=== PATIENT | female | born 1995 | race Asian ===

== ENCOUNTER → 2022-08-31 09:15 | Outpatient (CLI) | payer OTHER, SELFPAY ==
[2022-08-31 12:13] LABS: Hematocrit 35.6 % (36-46); Hemoglobin 12.3 g/dL (12.0-16.0)
[2022-08-31 12:27] LABS: GTT (PREG) 1 Hour PP 50gm Dose 142 mg/dL (76-139)
== END ==
PROVIDERS: PCP Physician Assistant; Referring Provider Obstetrics & Gynecology; Visit Provider Obstetrics & Gynecology
DX: Z34.00 Encounter for supervision of normal first pregnancy, unspecified trimester (principal); Z3A.26 26 weeks gestation of pregnancy
CPT/HCPCS: 36415; 82950; 85014; 85018; 86850

== ENCOUNTER → 2022-09-05 07:50 | Outpatient (CLI) | payer OTHER, SELFPAY ==
[2022-09-05 10:21] LABS: Glucose 1 Hour Gest 174 mg/dL (76-180)
[2022-09-05 10:22] LABS: Glucose Fasting Gestational 70 mg/dL (76-95)
[2022-09-05 10:58] LABS: Glucose 2 Hour Gest 154 mg/dL (76-155)
[2022-09-05 11:05] LABS: Glucose Tol Interp,Gestational INTERPRETATION
[2022-09-05 12:37] LABS: Glucose 3 Hour Gest 135 mg/dL (76-140)
== END ==
PROVIDERS: PCP Physician Assistant; Referring Provider Obstetrics & Gynecology; Visit Provider Obstetrics & Gynecology
DX: R73.09 Other abnormal glucose (principal)
CPT/HCPCS: 36415; 82951; 82952

== ENCOUNTER → 2022-11-14 09:04 | Outpatient (CLI) | payer OTHER, SELFPAY ==
[2022-11-15 07:56] LABS: Strep Grp B PCR NEG for Grp B Strep
== END ==
PROVIDERS: Visit Provider Obstetrics & Gynecology
DX: Z34.03 Encounter for supervision of normal first pregnancy, third trimester (principal); Z3A.37 37 weeks gestation of pregnancy
CPT/HCPCS: 87653

== ENCOUNTER 2022-12-05 16:06 | Observation (INO) | payer OTHER, SELFPAY ==
--- NOTE | 2022-12-05 16:16 | P.TNLD_ITS ---
Visit Information Visit Information Date of evaluation: 12/05/22 Primary OB Provider: Rosa Mcleod On-call OB Provider: Janel Nicole Comments/Additional reasons for admission: Pt is a 27yo at 40w1d here for contractions. Pt reports contractions started earlier today. They have been getting more painful. No LOF or vaginal bleeding. She is feeling her baby move regularly. [facility] Medical History (Updated 12/05/22 @ 18:10 by Janel Nicole MD) Anxiety (~2017) Eczema (~1993) Generalized anxiety disorder Headache (~2020) Seasonal allergies Surgical History (Updated 08/17/22 @ 10:42 by Pallavi Mujica, RN) [place] teeth extracted (~2011) Family History (Updated 08/17/22 @ 10:49 by Pallavi Mujica, RN) Grandmother Lung cancer Grandfather Heart disease Father Hepatitis C Hypertension Brother Brain tumor (benign) Diabetes mellitus Social History marital status: number of children: 0 household members: spouse lives independently: Yes caregiver/support person: No housing: house pets and animals: Yes education level: college (lavell's degree) occupational status: previously employed current occupational exposures/hazards: No special deja needs: No travel history: recent (domestic cross-country move only) seatbelt use: always water heater temp set < 120 deg: Yes working smoke detector in home: Yes fire extinguisher in home: No (counseled to get one) carbon monox detector in home: Yes firearms in home: No do you feel safe at home: Yes Smoking Status: Former smoker second hand exposure: No alcohol intake: former (very occasionally when not ) during the past year weight has: remained stable well-balanced diet: about half the time daily servings fruits/ve-4 caffeine: Yes (AM cup coffee) Type(s) of exercise: aerobic and yoga frequency: 3-4 times per week Evaluation Evaluation Baseline heart rate: 140 Variability: Moderate (11-25) monitor accelerations: Present Monitor Decelerations: Absent Contraction Frequency (minutes): 6 Uterine Contraction Intensity: Mild Category of Tracing: Reactive Cervical dilation (cm): 3 Cervical effacement (%): 90 station: -1 Diagnosis, Plan/Disposition Final Diagnosis (1) Prolonged latent phase of labor: Status: Acute Plan/Disposition Plan: Pt is a 27yo at 40w1d here for contractions. No cervical change in over an hour. FHT reactive. Discussed IOL scheduled for the morning of 12/07. Stable for discharge home. OB Disposition: home
[2022-12-05] MEDS: hydrOXYzine 50 MG/ML INJ IM (18:20)
[2022-12-05] MEDS: MORPHINE 4 MG/ML INJ IM (18:20)
== END 2022-12-05 18:35 | disposition home or self-care (01) ==
LOC: LABOR 16:07
PROVIDERS: Admitting Provider Family Medicine; Referring Provider Family Medicine; Visit Provider Family Medicine
DX: O63.0 Prolonged first stage (of labor) (principal); Z3A.40 40 weeks gestation of pregnancy
CPT/HCPCS: 59025; 96372; G0378; G0379; J2270; J3410

== ENCOUNTER 2022-12-06 01:32 | Observation (INO) | payer OTHER, SELFPAY ==
[2022-12-06] MEDS: MORPHINE 10 MG/ML INJ IM (03:27)
== END 2022-12-06 03:35 | disposition home or self-care (01) ==
PROVIDERS: Admitting Provider Family Medicine; Referring Provider Family Medicine; Visit Provider Family Medicine
DX: O47.1 False labor at or after 37 completed weeks of gestation (principal); O48.0 Post-term pregnancy; Z3A.40 40 weeks gestation of pregnancy
CPT/HCPCS: 59050; 96372; G0378; G0379; J2270

== ENCOUNTER 2022-12-06 15:27 | Inpatient (IN) | payer OTHER, SELFPAY ==
[2022-12-06 16:30] VITALS: BP 120/78
[2022-12-06 16:43] LABS: Add Manual Diff / Slide Review NO; Basophils Absolute Auto 0 /uL (0-100); Basophils Percent Auto 0.2 % (0-2); Eosinophils Absolute Auto 200 /uL (0-450); Hematocrit 37.6 % (36-46); Hemoglobin 13.1 g/dL (12.0-16.0); Lymphocytes Absolute Auto 1000 /uL (1100-4500); Lymphocytes Percent Auto 5.9 % (25-40); Mean Corpuscular HGB Conc 34.9 % (30-36); Mean Corpuscular Hemoglobin 30.6 PG (26-34); Mean Corpuscular Volume 87.7 fL (80-100); Monocytes Absolute Auto 1100 /uL (0-900); Monocytes Percent Auto 6.5 % (3-14); Neutrophils Absolute Auto 15100 /uL (1500-7000); Neutrophils Percent Auto 86.4 % (50-75); Platelet Count 302 X10^3/uL (150-400); Red Blood Cell Count 4.29 X10^6/uL (4.0-5.2); Red Cell Distribution Width 13.4 % (11.6-14.8); White Blood Cell Count 17.4 X10^3/uL (4.5-11.0)
--- NOTE | 2022-12-06 17:09 | PM.OBHP.1 ---
OB HPI Date/Time Date of admission: 12/06/22 Date Patient Seen: 12/06/22 Time Patient Seen: 17:09 History of Present Condition Chief complaint: IUp, 40+2 wks EGA, early labor, GBS NEG status : 1 Para: 0 Estimated Date of Delivery: 12/04/22 Estimated Gestational Age (weeks): 40+2 Narrative: John Moseley is a 27 year old Primigravida admitted in early labor now at 40+ 2 weeks gestational age. Patient's course has been largely uneventful with the exception that she was to have a marginal insertion of the umbilical cord at the time of her anatomy scan on 07/12/2022. Scan was otherwise unremarkable. Her most recent estimated weight was at 32 weeks by ultrasound and showed the infant to be at 35th percentile with a posterior placenta. Note, was made about the persistence of a marginal insertion at that time. Patient's GBS status is negative. The patient had an elevated 1 hour GDM screen but subsequent 3 hour GTT was negative. History of Present care: good care Dating criteria: LMP confirmed by 1st trimester US Ultrasounds: normal 1st trimester US and normal mid trimester US Abnormal ultrasound findings: Marginal cord insertion Obstetrical complications: none Medical complications: none Preadmission Labs Blood type: A (+) positive -: Antibody screen: negative, GBS status: negative, HBsAG: negative, HIV: negative and RPR/VDLR: negative -: Chlamydia screen: not detected and Gonorrhea screen: not detected -: Rubella: immune and Varicella: immune HCT: 37.6 HCAB: negative PAP: Normal 1 hr GTT: 142 3 hr GTT: 1 hr (174), 2 hr (154) and 3 hr (135) Fasting blood glucose: 70 Prior (ies) History: Primigravida Evaluation Evaluation Baseline heart rate: 145 Variability: Moderate (11-25) monitor accelerations: Present Monitor Decelerations: Episodic and Variable Contraction Frequency (minutes): 3 Uterine Contraction Intensity: Moderate Category of Tracing: Reactive Status: Category l Dilation (cm): 5 Effacement (%): 90 Dilation: >/=5 cm Effacement: >/=80% station: -1 Position of cervix: anterior Consistency: medium Winslow score: 11 [facility] Medical History (Updated 12/05/22 @ 18:10 by Janel Nicole MD) Anxiety (~2017) Eczema (~1993) Generalized anxiety disorder Headache (~2020) Seasonal allergies Surgical History (Updated 08/17/22 @ 10:42 by Pallavi Mujica RN) [place] teeth extracted (~2011) Family History (Updated 08/17/22 @ 10:49 by Pallavi Mujica RN) Grandmother Lung cancer Grandfather Heart disease Father Hepatitis C Hypertension Brother Brain tumor (benign) Diabetes mellitus Social History marital status: number of children: 0 household members: spouse lives independently: Yes caregiver/support person: No housing: house pets and animals: Yes education level: college (lavell's degree) occupational status: previously employed current occupational exposures/hazards: No special deja needs: No travel history: recent (domestic cross-country move only) seatbelt use: always water heater temp set < 120 deg: Yes working smoke detector in home: Yes fire extinguisher in home: No (counseled to get one) carbon monox detector in home: Yes firearms in home: No do you feel safe at home: Yes Smoking Status: Former smoker second hand exposure: No alcohol intake: former (very occasionally when not ) during the past year weight has: remained stable well-balanced diet: about half the time daily servings fruits/ve-4 caffeine: Yes (AM cup coffee) Type(s) of exercise: aerobic and yoga frequency: 3-4 times per week Meds Home Medications and Allergies Home Medications Medication Instructions Recorded Confirmed Type cetirizine 10 mg capsule (Zyrtec) 10 mg PO DAILY PRN see rx 08/17/22 12/06/22 History fluticasone propionate 50 1 spray intranasal DAILY 08/17/22 12/06/22 History mcg/actuation nasal spray,suspension (Flonase Allergy Relief) hydrocortisone 1 % topical cream 1 applic topical TID PRN see rx 08/17/22 12/06/22 History (Anti-Itch (hydrocortisone)) prenat.vits,layne,[id number] 1 tab PO DAILY 08/17/22 12/06/22 History Double Electric Breast Pump #1 ea 10/24/22 12/06/22 Rx Allergies Allergy/AdvReac Type Severity Reaction Status Date / Time Egg Derived Allergy Intermediate Hives Verified 12/05/22 10:00 Fish Containing Products Allergy Intermediate Hives Verified 12/05/22 10:00 peanut Allergy Intermediate Hives Verified 12/05/22 10:00 shellfish derived Allergy Intermediate Hives Verified 12/05/22 10:00 tree nuts Allergy Intermediate Hives Uncoded 12/05/22 10:00 Review of Systems Review of Systems Narrative: Problem-specific ROS positives included with the HPI OB Exam Vital signs Blood Pressure: 120/73 Pulse Rate: 100 Temperature: 97.5 F HENMT Head: normal to inspection, normocephalic and atraumatic Eyes General: appearance normal, both eyes and all related structures Resp Effort & Inspection: normal respiratory effort and able to speak in complete sentences Auscultation: clear to auscultation bilaterally Cardio Rate: regular rate Rhythm: regular rhythm Heart Sounds: S1 normal, S2 normal and no murmurs Extremities Lower extremity: Yes normal to inspection GI Inspection: normal to inspection Palpation: Yes soft and Yes no hepatosplenomegaly Uterus Location (Fundal Height): 37 Estimated Weight (lbs): 7 Objective Labs 12/06/22 16:10 Labs: Laboratory Results - last 24 hr 12/06/22 16:10 WBC 17.4 H RBC 4.29 Hgb 13.1 Hct 37.6 MCV 87.7 MCH 30.6 MCHC 34.9 RDW 13.4 Plt Count 302 Neut % (Auto) 86.4 H Lymph % (Auto) 5.9 L [place] % (Auto) 6.5 Eos % (Auto) 1.0 L Baso % (Auto) 0.2 Neut # (Auto) 10952 H Lymph # (Auto) 1000 L [place] # (Auto) 1100 H Eos # (Auto) 200 Baso # (Auto) 0 Assessment and Plan Assessment and Plan Assessment and Plan narrative: ASSESSMENT 1. Intrauterine , [place], 40+ 2 weeks gestational age 2. Early labor 3. Marginal insertion umbilical cord 4. GBS negative status PLAN 1. Admit for labor 2. OK for MIKE as desired 3. See admission orders
[2022-12-06 17:33] VITALS: BP 120/73; PULSE 100; TEMP 36.4
[2022-12-06] MEDS: LACTATED RINGERS 1,000 ML 100 ML IV (17:51)
--- NOTE | 2022-12-06 19:17 | PM.AN.REGBLK ---
Regional Block Pre-procedure Procedure: Continuous Lumbar Epidural for L&D Attending OB provider: Dudley Ferrer PM/TALON narrative: term labor. No medical or obstetric complications. ASA Class: II Labs: Hct 37.6 % (36-46) 12/06/22 16:10 Plt Count 302 X10^3/uL (150-400) 12/06/22 16:10 Medications: Current Medications Generic Name Dose Route Start Last Admin Trade Name Freq PRN Reason Stop Dose Admin Acetaminophen 650 mg 12/06/22 16:25 Acetaminophen 325 Mg Tablet PO Q4HR PRN Fever/Mild Pain (1-3) Calcium Carbonate 1,000 mg 12/06/22 16:03 Calcium Carbonate 500 Mg Tab PO Q4HR PRN Dyspepsia Calcium Carbonate 1,000 mg 12/06/22 16:25 Calcium Carbonate 500 Mg Tab PO Q2H PRN Dyspepsia Carboprost Tromethamine 250 mcg 12/06/22 16:03 Carboprost 250 Mcg/Ml Ampul IM Q90M PRN Bleeding Diphenhydramine HCl 25 mg 12/06/22 17:50 Diphenhydramine 50 Mg/Ml Vial IV Q10M PRN Pruritis Fentanyl 50 mcg 12/06/22 16:03 Fentanyl 100 Mcg/2 Ml Inj IV Q1H PRN Pain, Moderate (4-6) Oxytocin/Lactated Ringer's 30 unit in 500 mls @ 200 mls/hr 12/06/22 16:03 Oxytocin Premix IV CONT PRN Bleeding Protocol Tranexamic Acid 1,000 mg/ 100 mls @ 200 mls/hr 12/06/22 16:03 Sodium Chloride IV NOW PRN Bleeding Lactated Ringer's 1,000 mls @ 100 mls/hr 12/06/22 16:15 12/06/22 17:51 Lactated Ringers IV 100 mls/hr CONT BRENTON Administration Lactated Ringer's 1,000 mls @ 100 mls/hr 12/06/22 16:30 Lactated Ringers IV CONT BR[place] FENT 2MCG/ML BUPIV 0.1% EPI 200 mcg in 100 mls @ 6 mls/hr 12/06/22 18:00 Fentanyl/Bupiv/Ns 2mcg/Ml - 0.1% EPIDURAL CONT BRENTON Lidocaine HCl 20 ml 12/06/22 16:03 Lidocaine 1% 20 Ml INJ INTRA-OP PRN Post Delivery Methylergonovine Maleate 0.2 mg 12/06/22 16:03 Methylergonovine 0.2 Mg Tablet PO Q6HR PRN Heavy Bleeding Methylergonovine Maleate 0.2 mg 12/06/22 16:03 Methylergonovine 0.2 Mg/Ml Vial IM NOW PRN Bleeding Misoprostol 800 mcg 12/06/22 16:03 Misoprostol 200 Mcg Tablet ND NOW PRN Bleeding Misoprostol 400 mcg 12/06/22 16:03 Misoprostol 200 Mcg Tablet SL NOW PRN Bleeding Morphine Sulfate 2 mg 12/06/22 16:25 Morphine 2 Mg/Ml Inj IV Q4HR PRN Pain, Moderate (4-6) Nalbuphine HCl 2.5 mg 12/06/22 17:50 Nalbuphine 20 Mg/Ml Ampul IV Q10M PRN Pruritis Naloxone HCl 0.2 mg 12/06/22 16:03 Naloxone 0.4 Mg/Ml Vial IV Q2MIN PRN Opiate Reversal Ondansetron HCl 4 mg 12/06/22 16:03 Ondansetron 4 Mg/2 Ml Inj IV Q4HR PRN Nausea And Vomiting Oxytocin 10 unit 12/06/22 16:03 Oxytocin 10 Unit/Ml Vial IM NOW PRN Bleeding Zolpidem Tartrate 5 mg 12/06/22 16:25 Zolpidem 5 Mg Tablet PO BEDTIME PRN Sleep Allergies: Allergies Allergy/AdvReac Type Severity Reaction Status Date / Time Egg Derived Allergy Intermediate Hives Verified 12/05/22 10:00 Fish Containing Products Allergy Intermediate Hives Verified 12/05/22 10:00 peanut Allergy Intermediate Hives Verified 12/05/22 10:00 shellfish derived Allergy Intermediate Hives Verified 12/05/22 10:00 tree nuts Allergy Intermediate Hives Uncoded 12/05/22 10:00 Procedure Insertion date: 12/06/22 Insertion time: 18:58 Prep/Local: betadine x3 and 1% lidocaine Interspace: L2-3 Patient position: sitting Needle: 18 gauge Hustead (CSE: 27g Pencan through Hustead, clear CSF, 2.5mg MPF bupiv) Loss of resistance with: saline AMARJIT at (cm): 4 Catheter placed at SKIN (cm): 10 Catheter in SPACE (cm): 6 Insertion: No CSF, No Blood, No Paresthesia with insertion, No Paresthesia with injection and No Test dose reaction Initial Medications TEST DOSE time: 19:00 TEST DOSE: 1.5% lidocaine with epinephrine 1:200k (mL): 3 BOLUS DOSE time: 19:10 BOLUS DOSE (mL): 4 BOLUS DOSE med: other (infusate) Infusion INFUSION: 0.125% bupivacaine and with fentanyl 2 mcg/mL Initial rate (mL/hr): 8 Subsequent interventions: PCEA 8+4 00:10 - 2mL 0.5% bupiv, 5mL clinician bolus infusate for R sided block 00:30 - 5mL 2% chloroprocaine 00:55 - Persistent R sided block. Catheter pulled back to 8cm at skin, 5mL 2% chloroprocaine. Pt remains L lateral. 01:30 - Resolved with previous dose, but faded. 5mL 0.25% bupiv with resolution of symptoms. Post-procedure Anesthesia time START: 18:50 Anesthesia time END: 06:42 Post-procedure Anesthesia Assessment: Yes CV function: HR/BP stable, Yes Resp function: RR/sat/airway adequate, Yes Post-op hydration adequate, Yes Pain control adequate, Yes Nausea & vomiting absent, Yes Temperature > 36 C, Yes Mental status appropriate and No Anesthesia complications
[2022-12-06] MEDS: FENT 2MCG/ML BUPIV 0.1% EPI 200 MCG/100 ML PLAST..BAG 6 MCG EPIDURAL ×2 (19:28→23:02)
--- NOTE | 2022-12-07 06:51 | PM.OBPRVD ---
Labor & Delivery Delivery date: 12/07/22 Intrapartal Events: None Cervical ripening method: none Induction method: none Delivery monitor: external FHT and external uterine Route of delivery: Episiotomy description: None L&D Laceration Description: Periurethral - 1st Degree and Perineal - 1st Degree Estimated blood loss (mL): 250 Anesthesia Type: Epidural Complications: None Narrative: Following a 2 hour and 11 minute 2nd stage of labor, the patient delivered spontaneously over an intact perineum a viable male with Apgars of 9/9 in the left occiput anterior position. No shoulder dystocia or cord entanglement was encountered. Skin to skin contact was initiated immediately and delayed cord clamping performed. Once the umbilical cord was doubly clamped and cut, cord blood sample was obtained for routine studies. The placenta delivered spontaneously with gentle cord traction and suprapubic countertraction. Inspection of the placenta demonstrated a borderline marginal insertion of a three-vessel cord and the placenta itself was intact. Intravenous Pitocin was initiated immediately and blood loss following delivery was minimal with a total blood loss of approximately 250 cc. Inspection of the perineum showed a very superficial first-degree periurethral laceration which did not require closure as well as a superficial first-degree perineal laceration which also did not require closure for hemostasis. At the completion of delivery process both mother and infant were doing well and the delivery process was well tolerated. No complications were experienced. Baby 1: Infant gender: Male Presentation: vertex Position: Left Occiput Anterior Placenta delivery description: Spontaneous and Abnormal Configuration (Boderline marginal cord insertion) Cord Vessel Description: 3 Vessels score (1 min): 9 score (5 min): 9 weight: 6 lb 3.755 oz Plan for aftercare: Routine care
[2022-12-07] MEDS: ACETAMINOPHEN 325 MG TABLET 650 MG PO ×3 (07:49→20:00)
[2022-12-07] MEDS: IBUPROFEN 600 MG TABLET PO ×3 (07:50→20:01)
[2022-12-07] MEDS: DOCUSATE 100 MG CAPSULE PO (20:01)
[2022-12-07] MEDS: LANOLIN OINT 7 GM 1 APPLIC TOP (22:09)
[2022-12-08] MEDS: IBUPROFEN 600 MG TABLET PO (01:44)
[2022-12-08] MEDS: ACETAMINOPHEN 325 MG TABLET 650 MG PO ×2 (01:44→08:01)
[2022-12-08 06:16] LABS: Add Manual Diff / Slide Review NO; Basophils Absolute Auto 100 /uL (0-100); Basophils Percent Auto 0.4 % (0-2); Eosinophils Absolute Auto 500 /uL (0-450); Eosinophils Percent Auto 3.4 % (2-4); Hematocrit 28.2 % (36-46); Hemoglobin 9.1 g/dL (12.0-16.0); Lymphocytes Absolute Auto 2000 /uL (1100-4500); Mean Corpuscular HGB Conc 32.1 % (30-36); Mean Corpuscular Hemoglobin 28.6 PG (26-34); Mean Corpuscular Volume 89.1 fL (80-100); Monocytes Absolute Auto 1100 /uL (0-900); Monocytes Percent Auto 7.3 % (3-14); Neutrophils Absolute Auto 11900 /uL (1500-7000); Neutrophils Percent Auto 75.9 % (50-75); Platelet Count 243 X10^3/uL (150-400); Red Blood Cell Count 3.16 X10^6/uL (4.0-5.2); Red Cell Distribution Width 13.6 % (11.6-14.8); White Blood Cell Count 15.7 X10^3/uL (4.5-11.0)
--- NOTE | 2022-12-08 07:37 | PM.OBDS.1 ---
Discharge Providers Provider Date of admission: 12/06/22 15:27 Discharge Date: 12/08/22 Primary care physician: Krystian RODRIGUEZ Provider Consults: 12/06/22 16:03 Consult to Anesthesiology Urgent Comment: Consulting Provider: Anesthesiologist Reason for consultation: Epidural Has provider been notified: No 12/08/22 06:48 Consult to Answering Service Operator Routine Comment: Discharge provider: Dudley Ferrer MD Summary Hospital Course Date Patient Seen: 12/08/22 Time Patient Seen: 07:38 Diagnoses: Intrauterine gestation, 40+ 3 weeks gestational age, delivered by spontaneous vaginal Hospital Course: John was admitted in early active labor on the morning of 12/06/2022 and labored spontaneously delivering early on the morning 12/07/2022 viable male infant with Apgars of 9/9 and a weight of 2828 g (6 lb 3.8 oz). Following delivery the mother and baby have done extremely well with the mother experiencing prompt return of bowel and bladder function, she is ambulating independently, tolerating a regular diet, and her pain is well controlled with oral pain medications. She sustained only superficial abrasions at the time of delivery and required no repair. She did however have significant perineal edema which is significantly she will be discharged at this time to home in an afebrile normotensive condition after counseling regarding precautionary symptoms, limitations activity, medications, and plans for follow-up which will be in 6 weeks. Medications at discharge will include resumption of all medications and ibuprofen 600 mg p.o. q.6 hours as needed pain dispensed 60 with 2 refills. The patient may no decision regarding contraception following delivery. Peripartum Data Infant Delivery Method: Natural Vaginal Laceration Description: Periurethral - 1st Degree and Perineal - 1st Degree Episiotomy description: None Procedures: Continuous lumbar epidural Spontaneous vaginal complications: none [place] 1: Gender: Male Disposition of : home Status at Discharge Cognitive/behavioral status at discharge: oriented Functional status at discharge: independent ambulation Overall status at discharge: patient is progressing back to baseline Time Spent with Patient Time attestation: Total time spent providing and/or coordinating discharge services: Time spent: Less than 30 minutes Objective Labs 12/08/22 06:05 Labs: Laboratory Results - last 24 hr 12/08/22 06:05 WBC 15.7 H RBC 3.16 L Hgb 9.1 L Hct 28.2 L MCV 89.1 MCH 28.6 MCHC 32.1 RDW 13.6 Plt Count 243 Neut % (Auto) 75.9 H Lymph % (Auto) 13.0 L [place] % (Auto) 7.3 Eos % (Auto) 3.4 Baso % (Auto) 0.4 Neut # (Auto) 79456 H Lymph # (Auto) 2000 [place] # (Auto) 1100 H Eos # (Auto) 500 H Baso # (Auto) 100 Exam Const General: cooperative and comfortable Nutritional Appearance: average body habitus Orientation: alert and oriented x3 HENMT Head: normal to inspection, atraumatic and abrasion Ears: hearing grossly normal bilaterally Face and sinus: face symmetric Eyes General: appearance normal, both eyes and all related structures Conjunctivae: conjunctivae normal Sclera: sclerae normal EOM: EOM intact bilaterally Neck Neck: normal visual inspection Resp Effort & Inspection: normal respiratory effort and able to speak in complete sentences Auscultation: clear to auscultation bilaterally Cardio Rate: regular rate Rhythm: regular rhythm Heart Sounds: S1 normal, S2 normal and no murmurs GI Inspection: normal to inspection Palpation: soft, no hepatosplenomegaly and No tender External Female Exam: other (No significant bleeding noted, minimal swelling) Uterus Location (Fundal Height): 16 Extrem General: no calf tenderness Psych Appearance: grossly normal Mental Status: mental status grossly normal Speech and Movement: speech and movement normal Mood: congruent mood Affect: normal affect Attitude: cooperative Thought Process: normal Thought Content: normal Judgment: judgment good Discharge Plan Discharge Plan Patient Disposition: Home Provider Discharge Comment: Please review the written instructions you received at the time of your discharge. Your follow-up appointment will be scheduled with Dr. Mcleod in 6 weeks. If in the meanwhile you have any issues, concerns, questions, is [phone] Discharge orders & Medications Prescriptions: New ibuprofen 600 mg Tablet 600 mg PO Q6HR PRN (Reason: Pain, Mild (1-3)) Qty: 60 2RF Continued prenat.vits,layne,[id number] Tablet 1 tab PO DAILY Zyrtec 10 mg capsule 10 mg PO DAILY PRN (Reason: see rx) Rx Instructions: per MD order fluticasone propionate [Flonase Allergy Relief] 50 mcg/actuation spray,suspension 1 spray intranasal DAILY Rx Instructions: administer into each nostril hydrocortisone [Anti-Itch (HC)] 1 % cream 1 applic topical TID PRN (Reason: see rx) Rx Instructions: per (DME) Double Electric Breast Pump See Rx Instructions .Route .MEDSUPPLY Qty: 1 0RF Rx Instructions: As directed Follow up/Referrals: Krystian Mar [Primary Care Provider] - Dudley Ferrer MD [Physician] - Discharge Health Status Multidrug resistant organism: No MDRO Diet/Activity/Treatments Diet: Diet as Tolerated Activity: As tolerated Other treatments: [id number] Tylenol may be used for additional pain relief. [id number] stool softeners and/or MiraLax may be used as needed for constipation Skin/Wound/Dressing Care Report to your healthcare provider any signs of infection, such as:: chills, fever, increased pain, unusual drainage and unusual redness Dressing: N/A Visit Report/Discharge Packet Instructions: DI for Labor and Delivery, Vaginal , DI for and Nipple Soreness Discharge Data Primary Care Provider: Krystian Mar
[2022-12-08] MEDS: DOCUSATE 100 MG CAPSULE PO (08:00)
[2022-12-08 08:01] VITALS: TEMP 36.4
[2022-12-08 10:58] VITALS: BP 106/69; PULSE 86; RESP 17; TEMP 36.8
== END 2022-12-08 14:10 | disposition home or self-care (01) | DRG 807 ==
PROVIDERS: Obstetrics & Gynecology; Specialist; Admitting Provider Obstetrics & Gynecology; Referring Provider Obstetrics & Gynecology; Visit Provider Obstetrics & Gynecology
DX: O80 Encounter for full-term uncomplicated delivery (principal); Z37.0 Single live birth; Z3A.40 40 weeks gestation of pregnancy
CPT/HCPCS: 36415; 59050; 59410; 85025; 86850; 86900; 86901; 96372; G0378; G0379; J2270